=== PATIENT | female | born 1985 | race Caucasian/White ===

== ENCOUNTER 2018-04-18 20:05 | Emergency (ER) | payer MEDICAID | END 2018-04-18 22:39 | disposition home or self-care (01) | LOC: FTE 20:05 | DX: J02.9 Acute pharyngitis, unspecified (principal); R59.0 Localized enlarged lymph nodes | CPT/HCPCS: 99283; Z7502 ==

== ENCOUNTER 2018-12-02 17:32 | Emergency (ER) | payer MEDICAID ==
[2018-12-02] MEDS: KETOROLAC 30 MG INJ IM (18:49)
== END 2018-12-02 18:50 | disposition home or self-care (01) ==
LOC: FTE 17:32
DX: M54.5 Low back pain (principal)
CPT/HCPCS: 81025; 96372; 99284-25

== ENCOUNTER 2019-02-21 11:05 | Emergency (ER) | payer MEDICAID ==
[2019-02-21 11:37] LABS: URINE BLOOD (Dip) POC 1+ (NEGATIVE); URINE GLUCOSE (Dip) POC Negative (NEGATIVE); URINE KETONES (Dip) POC Negative (NEGATIVE); URINE LEUKOCYTE EST (Dip) POC Negative (NEGATIVE); URINE NITRITE (Dip) POC Negative (NEGATIVE); URINE TOTAL PROTEIN POC Negative (NEGATIVE)
[2019-02-21] MEDS: KETOROLAC 30 MG INJ IM (11:46)
== END 2019-02-21 12:50 | disposition home or self-care (01) ==
LOC: FTE 11:05
DX: M54.5 Low back pain (principal)
CPT/HCPCS: 81003; 81025; 96372; 99284-25